=== PATIENT | female | born 1945 | race Caucasian/White ===

== ENCOUNTER 2017-09-30 06:51 | Outpatient (CLI) | payer MEDICARE, OTHER ==
--- NOTE | 2017-09-30 12:08 | MMO ---
BILATERAL SCREENING MAMMOGRAPHY: Date: 09/30/2017 COMPARISON: 09/10/2016, 09/03/2015, and 08/08/2014. HISTORY: Screening mammography. FINDINGS: The patient's mammogram was interpreted with the assistance of computer-aided detection. Scattered fibroglandular densities are present. There is benign calcification noted bilaterally, stable. There is no dominant mass or architectural distortion and no concerning microcalcifications seen. IMPRESSION: BIRADS 2: Benign Finding(s) Annual screening mammography recommended. POS: [facility]
== END 2017-09-30 06:52 | disposition home or self-care (01) ==
LOC: MAMMO 06:51
PROVIDERS: ATTEND Family Medicine
DX: Z12.31 Encounter for screening mammogram for malignant neoplasm of breast (principal)
CPT/HCPCS: 77067; G0202

== ENCOUNTER 2017-10-19 11:53 | Outpatient (CLI) | payer MEDICARE, OTHER ==
[2017-10-19 12:56] LABS: Bilirubin Negative (Negative); Blood, Urine Negative (Negative); Glucose, Urine (Dipstick) Negative (Negative); Ketone, Urine Negative (Negative); Nitrite Negative (Negative); Protein, Urine (Dipstick) Negative (Neg-Trace); Urobilinogen 0.2 mg/dL (0.2-1.0)
[2017-10-19 12:58] LABS: Bacteria/HPF None Seen HPF (None Seen); Hyaline Casts/LPF 0-3 HYALINE CAST LPF (0-3 Hyaline); RBC/HPF 0-3 HPF (0-3); Squamous Epithelial 0-3 HPF (0-3); WBC/HPF 0-3 HPF (0-3)
[2017-10-19 13:15] LABS: Anion Gap 10 mmol/L (10-20); BUN (Urea Nitrogen) 13 mg/dL (9.8-20.1); Calc. Creatinine Clearance 0 mL/min (70-130); Calcium 10.2 mg/dL (7.8-10.44); Carbon Dioxide 31 mmol/L (23-31); Chloride 100 mmol/L (98-107); Estimated GFR-MDRD 55
--- NOTE | 2017-10-19 14:59 | RAD ---
PA AND LATERAL OF THE CHEST: INDICATION: History of renal cell carcinoma. COMPARISON: Prior exam dated 01/18/16. FINDINGS: No suggested pulmonary nodule is evident. No pleural effusion is evident. No acute osseous abnormal ity is evident. Heart size and pulmonary vasculature are within normal limits. IMPRESSION: No definite radiographic evidence of metastatic disease of the thorax. POS: [facility]
--- NOTE | 2017-10-19 15:01 | CT ---
CT ABDOMEN WITH AND WITHOUT CONTRAST: History: Renal cell carcinoma post cardiac ablation. Follow up examination. Comparison: 10-05-16 FINDINGS: There is stable post procedural change consistent with partial nephrectomy involving the inferior yaima e of the right kidney. There is a small 1-2 mm calculi within the mid aspect of the right kidney. No hydronephrosis is evident. No definite solid renal lesion is evident. No abnormal enhancement is seen within the regional bed. No lymphadenopathy is present. There is scattered vascular calcifications involving the abdominal aor ta. There are reticular nodular opacities seen within the right lower lobe which are new which may be rel ated to an infectious bronchiolitis. Recommend correlation. No focal hepatic lesion is evident. The pancreas, adrenal glands, and spleen appear within normal osman its. No acute osseous abnormality is evident. IMPRESSION: 1. No suspicious abnormality is seen within the inferior pole right kidney or right renal bed to sugg est recurrence. 2. Right nephrolithiasis. 3. Reticular nodularity in the right lower lobe, may reflect a respiratory bronchiolitis of infectiou s or inflammatory etiology. Recommend correlation. Metastatic disease is felt to be less likely. Code T POS: [facility]
== END 2017-10-19 11:54 | disposition home or self-care (01) ==
LOC: CT 11:53
PROVIDERS: ATTEND Urology
DX: C64.1 Malignant neoplasm of right kidney, except renal pelvis (principal); N20.0 Calculus of kidney; R91.8 Other nonspecific abnormal finding of lung field
CPT/HCPCS: 36415; 71020; 74170; 80048; 81001

== ENCOUNTER 2018-10-12 13:34 | Outpatient (CLI) | payer MEDICARE, OTHER | END 2018-10-12 13:35 | disposition home or self-care (01) | LOC: BICMAMMO 13:34 | PROVIDERS: ATTEND Family Medicine | DX: Z12.31 Encounter for screening mammogram for malignant neoplasm of breast (principal) | CPT/HCPCS: 77063; 77067 ==

== ENCOUNTER 2018-10-29 12:10 | Outpatient (CLI) | payer MEDICARE, OTHER ==
--- NOTE | 2018-10-29 12:54 | RAD ---
CHEST TWO VIEWS: Comparison: 10-19-17 History: Renal cell carcinoma of the right kidney. FINDINGS: Atherosclerosis of the aorta. Normal cardiac silhouette. The pulmonary vessels and hilum are normal. Costophrenic angles are clear. Hyperinflation, with chronic changes. No masses or consolidation. No p neumothorax or osseous abnormality. IMPRESSION: 1. No acute cardiopulmonary process. 2. Atherosclerosis. POS: [facility]
--- NOTE | 2018-10-29 15:35 | CT ---
CT ABDOMEN AND PELVIS WITH AND WITHOUT CONTRAST: HISTORY: Clear cell carcinoma of the right kidney. Prior cryotherapy. COMPARISON: CT 10/19/2017. FINDINGS: The previously described reticulonodular opacity in the right lower lobe has resolved. No pleural ef fusion. Similar appearance to the cryotherapy changes. No new abnormal enhancing mass is appreciated. No left-sided renal enhancing mass is appreciated. Mild left adrenal gland hypertrophy. No hydronephrosis. On the delayed phase of contrast, there are no filling defects within either dariana ecting system. No retroperitoneal adenopathy. The right renal vein is patent as well as the inferior vena cava. Th e liver, gallbladder, spleen, and pancreas are all unremarkable. No dilated loops of bowel in the upper abdomen. The appendix is partially visualized and is normal. There are degenerative disk space changes throughout the lumbar spine worst at L2-3 with degenerative 2 mm retrolisthesis. There is also advanced facet arthrosis at L4-5 with subsequent 3 mm anterolist hesis. No suspicious osteolytic or osteoblastic foci. IMPRESSION: 1. No evidence for disease recurrence. 2. No acute abnormality within the abdomen. 3. Interval resolution of the right lower lobe infection. POS: [facility]
== END 2018-10-29 12:11 | disposition home or self-care (01) ==
LOC: BICCT 12:10
PROVIDERS: ATTEND Urology
DX: C64.1 Malignant neoplasm of right kidney, except renal pelvis (principal); I70.0 Atherosclerosis of aorta
CPT/HCPCS: 36415; 71046; 74170; 80048; 81001

== ENCOUNTER 2019-02-28 14:10 | Outpatient (CLI) | payer MEDICARE, OTHER ==
--- NOTE | 2019-02-28 16:18 | MRI ---
MR OF THE LEFT KNEE WITHOUT CONTRAST: Indication: History of medial left knee pain after stepping off a curb wrong one week ago. Patient he romario a pop and felt pain in her left knee ever since. Patient has no history of prior surgery. Comparison: Left knee radiograph, 02-22-19. FINDINGS: There is a large semimembranosis/medial gastrocnemius popliteal cyst. There is a prominent joint effu megan. There are moderate marginal osteophytes affecting all major compartments of the left knee. The ACL fibers are indistinct, suspicious for complete tear. The PCL is intact. The MCL and LCLC are intact. There is a horizontally oriented oblique tear involving the posterior body and posterior junction of the medial meniscus with partial medial extrusion. There is prominent degenerative fraying involving the anterior body and anterior horn of the lateral meniscus. The extensor mechanism appears intact. The IT band and popliteus appear within normal limits. IMPRESSION: 1. Findings suspicious for possible chronic ACL deficiency. The ACL fibers are indistinct raising rajeev picion for a chronic ACL tear. Recommend correlation with clinical exam for insufficiency of ACL. 2. Moderate osteoarthrosis of the left knee with a large sized Morgan's cyst. 3. Horizontally oriented oblique tear involving the posterior body and posterior junction of the medi al meniscus with partial extrusion. 4. Prominent degenerative fraying involving the anterior body and anterior horn of the lateral menisc us. POS: [facility]
== END 2019-02-28 14:11 | disposition home or self-care (01) ==
LOC: BICMRI 14:10
PROVIDERS: ATTEND Nurse Practitioner Family
DX: M25.562 Pain in left knee (principal); M17.12 Unilateral primary osteoarthritis, left knee; M71.22 Synovial cyst of popliteal space [Baker], left knee; S83.242A Other tear of medial meniscus, current injury, left knee, initial encounter

== ENCOUNTER 2019-11-29 10:07 | Outpatient (CLI) | payer MEDICARE, OTHER ==
--- NOTE | 2019-11-29 11:52 | MRI ---
MRI BRAIN WITH AND WITHOUT IV CONTRAST: HISTORY: Senile degeneration of the brain, not elsewhere classified. COMPARISON: None. FINDINGS: No restricted diffusion is seen. There are numerous foci of T2 prolongation in the periventricular a nd subcortical white matter consistent with chronic small-vessel ischemic disease. There is cortical atrophy. Ventricular size is appropriate and the basilar cisterns are patent. No evidence of infar ct, hemorrhage, mass, midline shift, or abnormal extraaxial fluid collections is seen. No abnormal p ostcontrast enhancement is noted. There is mild mucosal disease in the paranasal sinuses. The masto id air cells are well aerated. IMPRESSION: 1. Cortical atrophy. 2. Chronic small-vessel ischemic disease. 3. No evidence of acute intracranial process or mass. POS: [facility]
== END 2019-11-29 10:08 | disposition home or self-care (01) ==
LOC: SCSMRI 10:07
PROVIDERS: ATTEND Psychiatry & Neurology Neurology
DX: G31.1 Senile degeneration of brain, not elsewhere classified (principal); I67.82 Cerebral ischemia
CPT/HCPCS: 70553; 82565

== ENCOUNTER 2020-10-23 15:23 | Outpatient (CLI) | payer MEDICARE, OTHER ==
--- NOTE | 2020-10-23 15:56 | MMO ---
Bilateral MAMMO Bilat Screen [facility]. CLINICAL HISTORY: Patient is 75 years old and is seen for screening. The patient has no family history of breast cancer. The patient has no personal history of cancer. VIEWS: The views performed were: bilateral craniocaudal with tomosynthesis and bilateral mediolateral oblique with tomosynthesis. FILMS COMPARED: The present examination has been compared to a prior imaging study performed at [facility] on 10/12/2018. This study has been interpreted with the assistance of computer-aided detection. MAMMOGRAM FINDINGS: The breasts are heterogeneously dense, which could obscure a lesion on mammography. There are stable benign appearing calcifications seen in both breasts. There are no suspicious masses, suspicious calcifications, or new areas of architectural distortion. IMPRESSION: THERE IS NO MAMMOGRAPHIC EVIDENCE OF MALIGNANCY. A ROUTINE FOLLOW-UP MAMMOGRAM IN 1 YEAR IS RECOMMENDED. THE RESULTS OF THIS EXAM WERE SENT TO THE PATIENT. ACR BI-RADS Category 2 - Benign finding MAMMOGRAPHY NOTE: 1. A negative mammogram report should not delay a biopsy if a dominant of clinically suspicious mass is present. 2. Approximately 10% to 15% of breast cancers are not detected by mammography. 3. Adenosis and dense breasts may obscure an underlying neoplasm. Reported by: RODRIGO MANZO MD Electonically Signed: [id number]
== END 2020-10-23 15:24 | disposition home or self-care (01) ==
LOC: BICMAMMO 15:23
PROVIDERS: ATTEND Family Medicine
DX: Z12.31 Encounter for screening mammogram for malignant neoplasm of breast (principal)
CPT/HCPCS: 77063; 77067

== ENCOUNTER 2022-06-25 18:18 | Inpatient (IN) | payer MEDICARE, OTHER ==
[2022-06-25 19:28] LABS: Hemoglobin 18.9 g/dL (12.0-16.0); Mean Corpuscular HGB CONC 33.8 g/dL (32.0-36.0); Mean Corpuscular Hemoglobin 32.5 pg (27.0-31.0); Mean Corpuscular Volume 96.4 fL (78.0-98.0); Mean Platelet Volume 9.3 fL (7.4-10.4); Platelet Count 290 thou/uL (130-400); RBC Distribution Width 11.5 % (11.5-14.5); Red Blood Cell (RBC) Count 5.81 mill/uL (4.20-5.40); White Blood Cell (WBC) Count 29.6 thou/uL (4.8-10.8)
[2022-06-25 19:50] LABS: ALT (SGPT) 101 U/L (8-55); AST (SGOT) 265 U/L (5-34); Albumin 4.4 g/dL (3.4-4.8); Alkaline Phosphatase 110 U/L (40-110); Anion Gap 27 mmol/L (10-20); BUN (Urea Nitrogen) 59 mg/dL (9.8-20.1); Bilirubin, Total 0.7 mg/dL (0.2-1.2); Calc. Creatinine Clearance 0 mL/min (70-130); Calcium 9.9 mg/dL (7.8-10.44); Carbon Dioxide 19 mmol/L (23-31); Chloride 99 mmol/L (98-107); Estimated GFR 11; Globulin 3.8 g/dL (2.4-3.5); Glucose 198 mg/dL (83-110); Potassium 4.7 mmol/L (3.5-5.1); Protein, Total 8.2 g/dL (5.8-8.1); Sodium 140 mmol/L (136-145)
[2022-06-25 19:51] LABS: Band 10 % (5-11); Lymphocytes 1 % (21-51); MDiff Complete? YES; Monocytes 7 % (0-10); Neutrophil 82 % (42-75); Platelet Morphology Comment Appears Adequate; RBC Morphology Normal
[2022-06-25 20:15] LABS: CK (CPK) 21526 U/L (29-168)
[2022-06-25 20:45] LABS: Bacteria/HPF None Seen HPF (None Seen); Bilirubin Negative (Negative); Blood, Urine 3+ (Negative); Clarity Turbid (Clear); Glucose, Urine (Dipstick) Normal (Negative); Ketone, Urine Negative (Negative); Leukocyte 500 Leu/uL (Negative); Nitrite Negative (Negative); Protein, Urine (Dipstick) 70 mg/dL (Neg-Trace); Specific Gravity, Urine 1.027 (1.002-1.036); Squamous Epithelial 0-3 HPF (0-3); Urobilinogen Normal mg/dL (Less than 2); WBC/HPF Greater than 50 HPF (0-3); pH, Urine 5.5 (5.0-9.0)
[2022-06-25 20:45] LABS: CKMB 97.8 ng/mL (0-6.6)
[2022-06-25] MEDS ORDERED: Aspirin 325 MG TAB ONE (20:48)
[2022-06-25] MEDS ORDERED: Cefepime 1 GM VIAL ONE (20:48)
[2022-06-25] MEDS ORDERED: Acetaminophen 325 MG TAB PO PRN (22:45)
[2022-06-25] MEDS ORDERED: Ondansetron PF 4 MG/2 ML Vial IVP PRN (22:45)
[2022-06-25] MEDS ORDERED: Sodium Chloride 0.9% 1,000 ML IV SCH (22:45)
[2022-06-25] MEDS ORDERED: Ondansetron ODT 4 MG TAB SL PRN (22:45)
[2022-06-25] MEDS ORDERED: Vancomycin 1 GM in Premix Bag 1 BAG IVPB SCH (22:45)
[2022-06-26 00:37] VITALS: BMI 29.2
[2022-06-26 00:48] LABS: Lactic Acid 5.7 mmol/L (0.5-2.2)
[2022-06-26] MEDS: Sodium Bicarbonate 150 MEQ in Dextrose 5% in Water 1,000 ML IV SCH ×4 (00:59→20:09)
[2022-06-26] MEDS ORDERED: hydrALAZINE 20 MG/ML VIAL SLOW IVP PRN (05:02)
[2022-06-26 05:09] LABS: Lactic Acid 2.7 mmol/L (0.5-2.2)
[2022-06-26 05:13] LABS: #Lymphocytes 0.9 thou/uL (1.20-3.40); #Monocytes 2.1 thou/uL (0.11-0.59); #Neutrophils 15.9 thou/uL (1.40-6.50); %Basophils 0.1 % (0.0-1.0); %Eosinophils 0.2 % (0.0-10.0); %Lymphocytes 4.7 % (21.0-51.0); Hemoglobin 16.9 g/dL (12.0-16.0); Mean Corpuscular HGB CONC 33.9 g/dL (32.0-36.0); Mean Corpuscular Volume 97.5 fL (78.0-98.0); Mean Platelet Volume 9.6 fL (7.4-10.4); Platelet Count 185 thou/uL (130-400); RBC Distribution Width 11.3 % (11.5-14.5); Red Blood Cell (RBC) Count 5.12 mill/uL (4.20-5.40)
[2022-06-26 05:34] LABS: Troponin I 11.107 ng/mL (< 0.028)
[2022-06-26 05:45] LABS: ALT (SGPT) 142 U/L (8-55); AST (SGOT) 460 U/L (5-34); Albumin 3.1 g/dL (3.4-4.8); Alkaline Phosphatase 92 U/L (40-110); BUN (Urea Nitrogen) 60 mg/dL (9.8-20.1); Bilirubin, Total 0.5 mg/dL (0.2-1.2); Calc. Creatinine Clearance 14 mL/min (70-130); Carbon Dioxide 14 mmol/L (23-31); Chloride 104 mmol/L (98-107); Estimated GFR 11; Globulin 3.3 g/dL (2.4-3.5); Glucose 229 mg/dL (83-110); Magnesium 2.3 mg/dL (1.6-2.6); Potassium 5.2 mmol/L (3.5-5.1); Protein, Total 6.4 g/dL (5.8-8.1); Sodium 138 mmol/L (136-145)
[2022-06-26] MEDS ORDERED: Heparin 10,000 UNITS/ 10 ML VIAL SLOW IVP SCH (06:00)
[2022-06-26] MEDS ORDERED: Heparin 25,000 units/D5W 500 ML IVPB SCH (06:00)
[2022-06-26 06:06] LABS: CK (CPK) 33265 U/L (29-168)
[2022-06-26 06:28] LABS: Anion Gap 25 mmol/L (10-20)
[2022-06-26] MEDS ORDERED: Heparin 5,000 UNITS/ML VIAL SC SCH (09:00)
[2022-06-26] MEDS: Pantoprazole 40 MG VIAL IVP SCH ×2 (09:56→20:08)
[2022-06-26] MEDS: Aspirin Chewable 81 MG TAB PO SCH (09:56)
[2022-06-26 10:38] LABS: Anion Gap 23 mmol/L (10-20); BUN (Urea Nitrogen) 63 mg/dL (9.8-20.1); Calc. Creatinine Clearance 14 mL/min (70-130); Calcium 8.1 mg/dL (7.8-10.44); Carbon Dioxide 20 mmol/L (23-31); Chloride 100 mmol/L (98-107); Estimated GFR 11; Glucose 181 mg/dL (83-110); Potassium 4.5 mmol/L (3.5-5.1); Sodium 138 mmol/L (136-145)
[2022-06-26 10:54] LABS: Troponin I 12.168 ng/mL (< 0.028)
[2022-06-26 13:56] LABS: PTT 204.1 sec (22.9-36.1)
[2022-06-26] MEDS ORDERED: Cefepime 1 GM in Sodium Chloride 0.9% 100 ML IVPB SCH (21:00)
[2022-06-27] MEDS: Sodium Bicarbonate 150 MEQ in Dextrose 5% in Water 1,000 ML IV SCH ×2 (04:37→16:39)
[2022-06-27 05:00] LABS: ALT (SGPT) 170 U/L (8-55); AST (SGOT) 509 U/L (5-34); Albumin 2.6 g/dL (3.4-4.8); Alkaline Phosphatase 67 U/L (40-110); Anion Gap 16 mmol/L (10-20); BUN (Urea Nitrogen) 68 mg/dL (9.8-20.1); Bilirubin, Total 0.5 mg/dL (0.2-1.2); Calc. Creatinine Clearance 14 mL/min (70-130); Carbon Dioxide 35 mmol/L (23-31); Chloride 91 mmol/L (98-107); Estimated GFR 11; Globulin 2.3 g/dL (2.4-3.5); Glucose 140 mg/dL (83-110); Potassium 3.2 mmol/L (3.5-5.1); Protein, Total 4.9 g/dL (5.8-8.1); Sodium 139 mmol/L (136-145)
[2022-06-27 05:27] LABS: CK (CPK) 28789 U/L (29-168)
[2022-06-27 05:41] LABS: #Lymphocytes 1.6 thou/uL (1.20-3.40); #Monocytes 1.2 thou/uL (0.11-0.59); #Neutrophils 10.6 thou/uL (1.40-6.50); %Basophils 0.1 % (0.0-1.0); %Eosinophils 0.1 % (0.0-10.0); %Lymphocytes 12.2 % (21.0-51.0); %Monocytes 8.5 % (0.0-10.0); %Neutrophils 79.1 % (42.0-75.0); Hemoglobin 13.2 g/dL (12.0-16.0); Mean Corpuscular HGB CONC 34.2 g/dL (32.0-36.0); Mean Corpuscular Hemoglobin 32.3 pg (27.0-31.0); Mean Corpuscular Volume 94.6 fL (78.0-98.0); Mean Platelet Volume 9.6 fL (7.4-10.4); Platelet Count 158 thou/uL (130-400); Red Blood Cell (RBC) Count 4.07 mill/uL (4.20-5.40); White Blood Cell (WBC) Count 13.4 thou/uL (4.8-10.8)
[2022-06-27] MEDS ORDERED: HumaLOG 300 UNITS/3 ML VIAL SC PRN (06:27)
[2022-06-27] MEDS ORDERED: Dextrose 5% in Water 1,000 ML IV PRN (06:27)
[2022-06-27] MEDS ORDERED: Dextrose 50% Abboject 50 ML SYRINGE SLOW IVP PRN (06:27)
[2022-06-27] MEDS: Aspirin Chewable 81 MG TAB PO SCH (09:43)
[2022-06-27] MEDS: Pantoprazole 40 MG VIAL IVP SCH (09:44)
[2022-06-27] MEDS ORDERED: Bacitracin 1 PK TOP PRN (12:06)
[2022-06-27 12:44] VITALS: BP 122/57; TEMP 97.7
== END 2022-06-27 18:15 | disposition hospice, inpatient (51) | DRG 871 ==
LOC: ERS 18:18 → 2NO 21:27
PROVIDERS: ADMIT Internal Medicine; ATTEND Internal Medicine
PROC: 3E03329 Introduction of Other Anti-infective into Peripheral Vein, Percutaneous Approach (ICD-10-PCS; principal; 2022-06-25)
PROC: 8E0ZXY6 Isolation (ICD-10-PCS; 2022-06-25)
DX: A41.51 Sepsis due to Escherichia coli [E. coli] (principal); Z51.5 Encounter for palliative care; Z66 Do not resuscitate; U07.1 COVID-19; G93.41 Metabolic encephalopathy; I21.A1 Myocardial infarction type 2; N17.0 Acute kidney failure with tubular necrosis; M62.82 Rhabdomyolysis; F03.91 Unspecified dementia, unspecified severity, with behavioral disturbance; N30.00 Acute cystitis without hematuria; E87.2 Acidosis; N18.5 Chronic kidney disease, stage 5; I12.0 Hypertensive chronic kidney disease with stage 5 chronic kidney disease or end stage renal disease; R65.20 Severe sepsis without septic shock; R74.8 Abnormal levels of other serum enzymes; E78.5 Hyperlipidemia, unspecified; J45.909 Unspecified asthma, uncomplicated; E86.0 Dehydration; H40.9 Unspecified glaucoma; D63.1 Anemia in chronic kidney disease; E87.5 Hyperkalemia; Z83.1 Family history of other infectious and parasitic diseases; Z79.899 Other long term (current) drug therapy; Z79.51 Long term (current) use of inhaled steroids; Z90.89 Acquired absence of other organs; Z98.51 Tubal ligation status; Z98.890 Other specified postprocedural states; I25.2 Old myocardial infarction
CPT/HCPCS: 36415; 70450; 71045; 80053; 81003; 81015; 82550; 82553; 83605; 83735; 84484; 85025; 87040; 87077; 87086; 87186; 93005; 93010; 97139; C9113; J0692; J1644; J3370; J3490; J7070; U0003; U0005